=== PATIENT | male | born 1980 | race Caucasian/White ===

== ENCOUNTER 2021-03-14 17:12 | Emergency (ER) | payer MEDICARE, MEDICAID, SELFPAY ==
[2021-03-14 17:29] VITALS: BP 148/102; PULSE 96; RESP 14; TEMP 37.1; O2SAT 98
[2021-03-14 17:45] LABS: Basophils Absolute Auto 0.1 K/mm3 (0.0-0.1); Basophils Percent Auto 0.8 % (0.2-1.2); Eosinophils Absolute Auto 0.1 K/mm3 (0-0.3); Eosinophils Percent Auto 0.5 % (0-4.4); Hematocrit 46.1 % (42.0-52.0); Hemoglobin 16.3 g/dL (14.0-18.0); Immature Granulocyte Absolute 0.05 K/mm3 (0.00-0.031); Immature Granulocyte Percent A 0.4 % (0-0.5); Lymphocytes Absolute Auto 2.64 K/mm3 (0.9-3.2); Lymphocytes Percent Auto 21.9 % (18.3-44.2); Mean Corpuscular HGB Conc 35.4 g/dl (32-36); Mean Corpuscular Hemoglobin 30.6 pg (26-34); Mean Corpuscular Volume 86.7 fl (80-100); Mean Platelet Volume 11.1 fl (7.4-10.4); Monocytes Absolute Auto 0.9 K/mm3 (0.1-0.6); Monocytes Percent Auto 7.7 % (2.6-8.5); Neutrophils Absolute Auto 8.3 K/mm3 (1.3-6.7); Neutrophils Percent Auto 68.7 % (45.5-73.1); Platelet Count Result 332 k/mm3 (150-375); Red Blood Count 5.32 M/mm3 (4.6-6.20); Red Cell Distribution Width 12.7 % (11.5-14.5); White Blood Count 12.1 K/mm3 (4.5-10.0)
[2021-03-14 17:51] LABS: Add Urine Microscopic? YES; Appearance Urine Cloudy (Clear); Bacteria Urine Trace /hpf; Bilirubin Urine Negative (Negative); Blood Urine 3+ (Negative); Color Urine Amber (Yellow); Glucose Urine UA Negative (Negative); Hyaline Casts Urine 30-49 /lpf; Ketones Urine Trace mg/dL (Negative); Leukocyte Esterase Ur Negative LEU/UL (Negative); Mucus Urine Moderate /lpf; Nitrate Urine Negative (Negative); Protein Urine 2+ mg/dL (Negative); RBC Urine >75 /hpf (0-2); Specific Grav Ur 1.019 (1.001-1.035); Squamous Epithelial Cell Urine Many /hpf (Few)
[2021-03-14 17:58] LABS: Alanine Aminotransferase 17 U/L (4-50); Albumin Level 5.4 g/dL (3.5-5.1); Alkaline Phosphatase 93 U/L (38-126); Anion Gap 20 mmol/L (8-16); Aspartate Amino Transferase 46 U/L (17-59); Bilirubin,Total 0.5 mg/dL (0.2-1.3); Blood Urea Nitrogen 14 mg/dL (9-20); Calcium 9.8 mg/dL (8.4-10.2); Carbon Dioxide 17 mmol/L (22-30); Chloride 101 mmol/L (98-107); Estimated CRCL calculation 67 ml/min; Estimated Glomerular Filt Rate > 60; Ethanol 142 mg/dL (<10); Glucose 97 mg/dL (75-110); Potassium 3.7 mmol/L (3.4-5.0); Sodium 138 mmol/L (137-145)
[2021-03-14 18:03] LABS: Amphetamine Screen Urine Negative (Negative); Barbiturate Screen Urine Negative (Negative); Benzodiazepines Screen Urine Negative (Negative); Cannabinoid Screen Urine Positive (Negative); Cocaine Screen Urine Negative (Negative); Methadone Screen Urine Negative (Negative); Opiate Screen Urine Negative (Negative); Phencyclidine Screen Urine Negative (Negative)
--- NOTE | 2021-03-14 19:19 | PC.NURSE ---
Chem, MENDOZA Nicole, added on
--- NOTE | 2021-03-14 19:21 | PC.NURSE ---
Report received from TIMI Tierney. Assumed care of patient at this time.
[2021-03-14 19:27] LABS: Creatine Kinase 381 U/L (55-170)
[2021-03-14] MEDS: LACTATED RINGERS 1,000 ML 999 ML IV CONT (19:33)
[2021-03-14 19:35] VITALS: BP 164/93; PULSE 86; RESP 16; TEMP 36.9; O2SAT 98
--- NOTE | 2021-03-14 19:59 | PC.NURSE ---
Per ERP , patient is medically cleared at this time. Contact Crisis for evaluation.
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
[2021-03-14 21:07] LABS: EDCOVIDSCREEN Negative (Negative)
[2021-03-14 22:02] LABS: Valproic Acid < 10.0 ug/mL (50-120)
--- NOTE | 2021-03-14 22:24 | PC.NURSE ---
2223 Yuni from [facility] in [place] calls to inform this nurse that there are no beds available at this time, but they do have discharges scheduled for the morning to can check back.
[2021-03-14 22:39] LABS: Ethanol 40 mg/dL (<10)
[2021-03-14] MEDS: DIVALPROEX SODIUM ER 500 MG TAB.24H 1000 MG PO (23:13)
[2021-03-15 05:21] VITALS: BP 119/70; PULSE 81; RESP 18; TEMP 36.6; O2SAT 97
--- NOTE | 2021-03-15 10:38 | PC.NURSE ---
faxxed pt ed summary to [facility] at this time.
--- NOTE | 2021-03-15 10:47 | PC.NURSE ---
original fax to [facility] did not go through, called [facility] and received a different fax number. pt info faxed again at this time.
[2021-03-15 11:02] VITALS: BP 138/90; PULSE 64; RESP 16; O2SAT 99
--- NOTE | 2021-03-15 11:06 | PC.NURSE ---
per [facility] reassessment no risk indicated, sitter removed at this time.
--- NOTE | 2021-03-15 13:52 | PC.NURSE ---
spoke with Hank from [facility] at this time regarding placement
--- NOTE | 2021-03-15 14:30 | PC.NURSE ---
was notified at this time that [facility] rejected pt. pt summary faxed to [facility] at this time.
[2021-03-15 17:43] LABS: Creatine Kinase 136 U/L (55-170)
--- NOTE | 2021-03-15 17:54 | PC.NURSE ---
pt asked per [facility] request if pt has UTI like symptoms. pt denies burning, frequency, or any other UTI symptoms.
[2021-03-15 19:32] VITALS: BP 146/80; PULSE 59; RESP 16; TEMP 37; O2SAT 98
== END 2021-03-15 20:35 ==
PROVIDERS: Emergency Medicine; Emergency Provider Emergency Medicine
DX: R45.851 Suicidal ideations (principal); E86.0 Dehydration; Z87.820 Personal history of traumatic brain injury; F17.210 Nicotine dependence, cigarettes, uncomplicated; Z79.899 Other long term (current) drug therapy; Z20.822 Contact with and (suspected) exposure to COVID-19
CPT/HCPCS: 36415; 80053; 80164; 80307; 81001; 82550; 84443; 85025; 87426; 96360; 99285; A9270; C9803; J7120

== ENCOUNTER 2021-11-20 22:03 | Emergency (ER) | payer MEDICARE, MEDICAID, SELFPAY ==
--- NOTE | 2021-11-20 22:14 | PC.NURSE ---
40yr, M presents to the ED with c/o mental health issues, suicidal thoughts, denies homicidal thoughts.
[2021-11-20 22:15] VITALS: BP 143/101; PULSE 82; RESP 14; O2SAT 99
[2021-11-20 22:31] LABS: Basophils Absolute Auto 0.1 K/mm3 (0.0-0.1); Basophils Percent Auto 1.3 % (0.2-1.2); Eosinophils Absolute Auto 0.2 K/mm3 (0-0.3); Eosinophils Percent Auto 1.7 % (0-4.4); Hematocrit 46.5 % (42.0-52.0); Hemoglobin 16.3 g/dL (14.0-18.0); Immature Granulocyte Absolute 0.03 K/mm3 (0.00-0.031); Immature Granulocyte Percent A 0.3 % (0-0.5); Lymphocytes Absolute Auto 3.05 K/mm3 (0.9-3.2); Lymphocytes Percent Auto 28.3 % (18.3-44.2); Mean Corpuscular HGB Conc 35.1 g/dl (32-36); Mean Corpuscular Hemoglobin 30.6 pg (26-34); Mean Corpuscular Volume 87.2 fl (80-100); Mean Platelet Volume 11.3 fl (7.4-10.4); Monocytes Absolute Auto 0.7 K/mm3 (0.1-0.6); Neutrophils Absolute Auto 6.7 K/mm3 (1.3-6.7); Neutrophils Percent Auto 62.4 % (45.5-73.1); Platelet Count Result 282 k/mm3 (150-375); Red Blood Count 5.33 M/mm3 (4.6-6.20); Red Cell Distribution Width 13.1 % (11.5-14.5); White Blood Count 10.8 K/mm3 (4.5-10.0)
--- NOTE | 2021-11-20 22:46 | PC.NURSE ---
Pt is legally blind, states he can only see shapes and colors.
--- NOTE | 2021-11-20 22:55 | PC.NURSE ---
Pt reports he has a hx of psychiatric treatment. States a couple months ago he took all prescribed medication in an attempt to harm himself, but did not seek treatment. Pt states nothing came of it . Pt also reports hx self mutilation. When asked if he had a plan to harm himself [place], pt states you cant live that ling without water, I was going to dehydrate myself. I was going to start there . Repots after talking on phone with ex-, he decided to come in for evaluation. Denies HI or auditory or visual hallucinations. Pt calm and cooperative with treatment plan at this time. Sitter at bedside.
[2021-11-20 22:59] LABS: Ethanol < 10 mg/dL (<10)
[2021-11-20 23:01] LABS: Alanine Aminotransferase 12 U/L (4-50); Albumin Level 4.7 g/dL (3.5-5.1); Alkaline Phosphatase 76 U/L (38-126); Anion Gap 10 mmol/L (8-16); Aspartate Amino Transferase 21 U/L (17-59); Bilirubin,Total 0.6 mg/dL (0.2-1.3); Blood Urea Nitrogen 17 mg/dL (9-20); Calcium 9.2 mg/dL (8.4-10.2); Carbon Dioxide 21 mmol/L (22-30); Chloride 108 mmol/L (98-107); Estimated CRCL calculation 108 ml/min; Estimated Glomerular Filt Rate > 60; Glucose 98 mg/dL (65-110); Potassium 4.3 mmol/L (3.4-5.0); Sodium 139 mmol/L (137-145)
[2021-11-20 23:08] LABS: Amphetamine Screen Urine Negative (Negative); Barbiturate Screen Urine Negative (Negative); Benzodiazepines Screen Urine Negative (Negative); Cannabinoid Screen Urine Positive (Negative); Cocaine Screen Urine Negative (Negative); Methadone Screen Urine Negative (Negative); Opiate Screen Urine Negative (Negative); Phencyclidine Screen Urine Negative (Negative)
[2021-11-20 23:11] LABS: Add Urine Microscopic? YES; Appearance Urine Clear (Clear); Bacteria Urine Trace /hpf; Bilirubin Urine Negative (Negative); Blood Urine 2+ (Negative); Color Urine Yellow (Yellow); Glucose Urine UA Negative (Negative); Ketones Urine 1+ mg/dL (Negative); Leukocyte Esterase Ur Negative LEU/UL (Negative); Mucus Urine Heavy /lpf; Nitrate Urine Negative (Negative); Protein Urine 1+ mg/dL (Negative); RBC Urine 51-75 /hpf (0-2); Specific Grav Ur 1.026 (1.001-1.035)
[2021-11-20 23:25] LABS: SARS-CoV-2 RNA PCR Negative
--- NOTE | 2021-11-21 00:35 | ED.PSYCH ---
HPI - Psych General Chief Complaint: Psychiatric Symptoms <Chelsi Mena APRN - Last Filed: 11/21/21 03:56> Stated Complaint: suicidal thoughts <Chelsi Mena APRN - Last Filed: 11/21/21 03:56> Time Seen by Provider: 11/20/21 22:07 <Chelsi Mena APRN - Last Filed: 11/21/21 03:56> Source: patient <Chelsi Mena APRN - Last Filed: 11/21/21 03:56> Mode of arrival: ambulatory <Chelsi Mena APRN - Last Filed: 11/21/21 03:56> Limitations: no limitations <Chelsi Mena APRN - Last Filed: 11/21/21 03:56> History of Present Illness HPI Narrative: 40-year-old male with history of brain injury presents today with complaints of suicidal ideation. Patient states his plan was to dehydrate himself. Patient states he has a history of depression and has had suicidal thoughts in the past they are just worse now. Patient denies homicidal ideation. Patient denies hearing voices. Patient is calm and cooperative on exam. <Chelsi Mena APRN - Last Filed: 11/21/21 03:56> Related Data Home Medications: Home Medications Medication Instructions Recorded Confirmed buspirone mg 03/14/21 divalproex PO 03/14/21 tamsulosin mg PO 03/14/21 <Chelsi Mena TEXTILE MACHINERY SALES REPRESENTATIVE - Last Filed: 11/21/21 03:56> Allergies/Adverse Reactions: Allergies Allergy/AdvReac Type Severity Reaction Status Date / Time bee venom protein (honey bee) Allergy Unknown Unknown Verified 03/14/21 18:44 diphenhydramine Allergy Unknown Unresponsiv Verified 03/14/21 18:44 e tramadol Allergy Unknown nauseated Verified 01/16/17 17:34 <Chelsi Mena APRN - Last Filed: 11/21/21 03:56> Review of Systems Review of Systems: CONSTITUTIONAL: Denies fever, chills, or sweats. EYES: Denies visual changes, redness, or discharge. ENT: Denies rhinorrhea, congestion, sore throat, or otalgia. CARDIOVASCULAR: Denies chest pain, palpitations, or edema. RESPIRATORY: Denies cough or dyspnea. GASTROINTESTINAL: Denies abdominal pain, nausea, vomiting, or diarrhea. GENITOURINARY: Denies dysuria or hematuria. SKIN: Denies rash or itching. MUSCULOSKELETAL: Denies back pain, joint pain, or myalgia. NEUROLOGIC: Denies headache, numbness, dizziness, or weakness. PSYCHIATRIC: Anxiety, depression, and suicidal ideation. <Chelsi Mena APRN - Last Filed: 11/21/21 03:56> PMFSH Social History Social History: Social History Substance use type: does not use <Chelsi Mena APRN - Last Filed: 11/21/21 03:56> Exam Narrative: GENERAL: Well-appearing, well-nourished, and in no acute distress. HEAD: Normocephalic, atraumatic. EYES: PERRLA and EOMI. ENT: Nares clear, no rhinorrhea or epistaxis. Mucous membranes moist. Oropharynx without tonsillar hypertrophy exudate or other lesions. Bilateral TMs pearly cooney nonbulging NECK: Supple. No adenopathy or masses. No carotid bruits or JVD CHEST: Clear to auscultation. No respiratory distress. No wheezes rales or rhonchi HEART: Regular rate and rhythm. No murmur heard. Normal peripheral pulses. ABDOMEN: Soft, nontender, nondistended, normal active bowel sounds. EXTREMITIES: Normal range of motion. No edema. SKIN: Warm, dry, no rash. NEURO: No focal deficits. Alert and oriented x3. PSYCH: Depressed. Flat affect. <Chelsi Mena APRN - Last Filed: 11/21/21 03:56> Course Course Emergency Course: Crises evaluated patient. Patient to be discharged home with safety plan and follow up with psychiatry. <Chelsi Mena APRN - Last Filed: 11/21/21 03:56> Reevaluation(s) Reevaluation #1: Medically cleared for psych/crisis evaluation <Chelsi Mena APRN - Last Filed: 11/21/21 03:56> Date: 11/21/21 <Chelsi Mena APRN - Last Filed: 11/21/21 03:56> Time: 00:35 <Chelsi Mena, TEXTILE MACHINERY SALES REPRESENTATIVE - Last Filed: 11/21/21 03:56> Vital Signs Vital signs: Vital Signs Pulse Rate 82 11/20/21 22:15 Respirato
--- NOTE | 2021-11-21 00:35 | PC.NURSE ---
Pt medically cleared at this time
--- NOTE | 2021-11-21 01:37 | PC.NURSE ---
[place] arrived to evaluate pt
[2021-11-21 03:02] VITALS: BP 114/67; PULSE 90; RESP 16; TEMP 36.2; O2SAT 99
== END 2021-11-21 03:01 | disposition home or self-care (01) ==
PROVIDERS: General Practice; Emergency Provider Nurse Practitioner Family
DX: F32.A Depression, unspecified (principal); Z87.820 Personal history of traumatic brain injury; Z20.822 Contact with and (suspected) exposure to COVID-19; Z79.899 Other long term (current) drug therapy
CPT/HCPCS: 36415; 80053; 80307; 81001; 84443; 85025; 99284; C9803; U0003; U0005

== ENCOUNTER 2022-10-11 22:28 | Emergency (ER) | payer MEDICARE, MEDICAID, SELFPAY ==
--- NOTE | 2022-10-11 22:33 | ECG_ITS ---
Measurements Intervals [place] Rate: 85 P: 57 SD: 118 QRS: 82 QRSD: 105 T: 71 QT: 376 QTc: 449 Interpretive Statements SINUS RHYTHM WITH SHORT [place] INTERVAL MINIMAL Q WAVES- INFERIOR LEADS BASELINE ARTIFACT- I, V3-V4 BORDERLINE ECG NO PREVIOUS ECG AVAILABLE FOR COMPARISON Electronically Signed On 10-12-2022 7:55:31 CONFIGURATION ENGINEER by Vinod Patel D.O.
[2022-10-11 22:34] VITALS: BP 129/93; PULSE 85; RESP 20; TEMP 37.1; O2SAT 100
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
[2022-10-11 23:05] LABS: Basophils Absolute Auto 0.2 K/mm3 (0.0-0.1); Basophils Percent Auto 0.9 % (0.2-1.2); Eosinophils Absolute Auto 0.2 K/mm3 (0-0.3); Eosinophils Percent Auto 0.7 % (0-4.4); Hematocrit 52.5 % (42.0-52.0); Hemoglobin 17.9 g/dL (14.0-18.0); Immature Granulocyte Absolute 0.15 K/mm3 (0.00-0.031); Immature Granulocyte Percent A 0.7 % (0-0.5); Lymphocytes Absolute Auto 3.05 K/mm3 (0.9-3.2); Lymphocytes Percent Auto 15.1 % (18.3-44.2); Mean Corpuscular HGB Conc 34.1 g/dl (32-36); Mean Corpuscular Hemoglobin 30.1 pg (26-34); Mean Corpuscular Volume 88.4 fl (80-100); Mean Platelet Volume 10.1 fl (7.4-10.4); Monocytes Absolute Auto 0.8 K/mm3 (0.1-0.6); Monocytes Percent Auto 3.9 % (2.6-8.5); Neutrophils Absolute Auto 15.9 K/mm3 (1.3-6.7); Neutrophils Percent Auto 78.7 % (45.5-73.1); Platelet Count Result 353 k/mm3 (150-375); Red Blood Count 5.94 M/mm3 (4.6-6.20); Red Cell Distribution Width 13.2 % (11.5-14.5); White Blood Count 20.2 K/mm3 (4.5-10.0)
[2022-10-11] MEDS: SODIUM CHLORIDE 0.9% IV 1,000 ML 999 ML IV CONT (23:11)
[2022-10-11] MEDS: THIAMINE HCL 200 MG/2 ML VIAL 100 MG IV PUSH (23:11)
[2022-10-11 23:27] LABS: Alanine Aminotransferase 20 U/L (6-50); Albumin Level 5.2 g/dL (3.5-5.1); Alkaline Phosphatase 114 U/L (38-126); Anion Gap 17 mmol/L (8-16); Aspartate Amino Transferase 29 U/L (17-59); Bilirubin,Total 0.4 mg/dL (0.2-1.3); Blood Urea Nitrogen 14 mg/dL (9-20); Calcium 8.7 mg/dL (8.4-10.2); Carbon Dioxide 18 mmol/L (22-30); Chloride 106 mmol/L (98-107); Estimated Glomerular Filt Rate > 60; Glucose 77 mg/dL (65-110); Potassium 4.1 mmol/L (3.4-5.0); Sodium 141 mmol/L (137-145)
[2022-10-11 23:35] LABS: Acetaminophen < 10 ug/mL (10-30); Ethanol 202 mg/dL (<10); Salicylate < 1.0 mg/dL (2-20)
[2022-10-11 23:52] LABS: SARS-CoV-2 RNA PCR Negative
[2022-10-12 00:04] LABS: Mucus Urine Rare /lpf; WBC Urine 0-3 /hpf
[2022-10-12 00:07] LABS: Amphetamine Screen Urine Negative (Negative); Barbiturate Screen Urine Negative (Negative); Benzodiazepines Screen Urine Negative (Negative); Cannabinoid Screen Urine Positive (Negative); Cocaine Screen Urine Negative (Negative); Methadone Screen Urine Negative (Negative); Opiate Screen Urine Negative (Negative); Phencyclidine Screen Urine Negative (Negative)
[2022-10-12 00:22] LABS: Add Urine Microscopic? YES; Appearance Urine Clear (Clear); Bilirubin Urine Negative (Negative); Blood Urine 1+ (Negative); Color Urine Yellow (Yellow); Glucose Urine UA Negative (Negative); Ketones Urine Negative (Negative); Leukocyte Esterase Ur Negative LEU/UL (Negative); Nitrate Urine Negative (Negative); Protein Urine 1+ mg/dL (Negative); Specific Grav Ur 1.015 (1.001-1.035); Urobilinogen Urine 0.2 mg/dL (<2.0); pH Urine 5.5 (5.0-9.0)
[2022-10-12 02:50] VITALS: BP 118/81; PULSE 71; RESP 18; O2SAT 97
[2022-10-12 03:37] LABS: Ethanol 119 mg/dL (<10)
[2022-10-12 06:22] LABS: Ethanol 61 mg/dL (<10)
[2022-10-12 06:35] VITALS: BP 141/79; PULSE 85; RESP 16; O2SAT 97
--- NOTE | 2022-10-12 07:24 | PC.NURSE ---
Patient report received from TIMI Castellano. All questions answered and care of patient assumed. Patient resting quietly in room 15. Awaiting breakfast tray and ultimate discharge to home.
--- NOTE | 2022-10-12 08:15 | PC.NURSE ---
Patient alert and oriented at this time. Denies SI/HI. Patient unsure how is going to get home. This RN asked patient if his mom could be called for transport and he agreed though he stated she won't come - she's the reason I'm here . The patient's mother was called and she informed this RN that the patient was no longer welcomed at her home where he lives. Mother reports that the patient has been aggressive and threatening and that there was evidence on the [place] that he was researching if bleach could kill someone . Mother informed this RN that she was going to be going to the court house for assistance in getting the patient placed in a mental health facility due to his paranoia and aggressive behavior. This was communicate to the email marketing intern, the EDP, and Case Management. Instructed to contact Crisis for evaluation.
--- NOTE | 2022-10-12 08:26 | PC.NURSE ---
Patient's mother Matidla - [phone]
--- NOTE | 2022-10-12 08:38 | PC.NURSE ---
Crisis contacted - spoke with Jennifer who will come to evaluate patient.
--- NOTE | 2022-10-12 09:59 | PCCCNOTE ---
Jennifer from Crisis is here for an evaluation, Called patient's mom Matilda at [phone]. She states that she does not have guardianship over him, she did at one point but then he went to the courthouse and to get and she had the guardianship dropped before marrying him. She thinks maybe there is POA paperwork somewhere but not sure where. At this point, he makes all of him own personal, and medical decisions. Mother Matilda reports grandiose behaviors with manipulation, does not think it is part of TBI but mental health. He was seeing a psychiatrist virtually but when she would not give him a specific diagnosis she fired her that was several months ago and Matilda reports that he probably stopped taking his medications before them. Mother Matilda is planning to file for an order of protection against him. Advised that Jennifer will be going to do a crisis eval, and we can update her. Per Mother Matilda, states that she is in her 60s and is 70s and not able to handle with ongoing behaviors and if he is cleared by crisis, will not be able to come to stay at her home. She is packing his belongings.
--- NOTE | 2022-10-12 10:20 | PC.NURSE ---
Jennifer with Crisis at bedside along with Case Management.
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
[2022-10-12 11:50] VITALS: BP 189/81; PULSE 91; RESP 20; O2SAT 100
== END 2022-10-12 11:51 | disposition home or self-care (01) ==
PROVIDERS: Emergency Medicine; Emergency Provider Nurse Practitioner Family
DX: F10.129 Alcohol abuse with intoxication, unspecified (principal); I10 Essential (primary) hypertension; F43.10 Post-traumatic stress disorder, unspecified; F32.9 Major depressive disorder, single episode, unspecified; Y90.0 Blood alcohol level of less than 20 mg/100 ml; Z20.822 Contact with and (suspected) exposure to COVID-19; Z79.899 Other long term (current) drug therapy
CPT/HCPCS: 36415; 80053; 80307; 81001; 84443; 85025; 93005; 96374; 99284; J3411; J7030; U0003; U0005

== ENCOUNTER 2023-02-06 10:53 | Emergency (ER) | payer MEDICARE, MEDICAID, SELFPAY ==
--- NOTE | ~2023-02-06 | XR_ITS ---
XR foot RT min 3V 02/06/2023 11:23 Indication: Right foot pain Procedure: 4 views right foot Comparison: No prior studies Findings: There is a small ossific density adjacent to the third proximal phalanx medially, suspiciou s for avulsion fracture. The Lisfranc joint intact. There is a degenerative calcaneal enthesophyte. Impression: 1: Small ossific density adjacent to the right third proximal phalanx, suspicious for avulsion fractu re. Reviewed, dictated and finalized at location B. Impression: 1: Small ossific density adjacent to the right third proximal phalanx, suspicio us for avulsion fracture.
[2023-02-06 11:11] VITALS: BP 126/86; PULSE 85; RESP 18; TEMP 36.6; O2SAT 100
--- NOTE | 2023-02-08 12:28 | ED.LOWEXIN ---
HPI - Extremity Injury (Lower) General Chief Complaint: Extremity Injury, Lower Stated Complaint: rt ankle pain Time Seen by Provider: 02/06/23 11:30 Source: patient Mode of arrival: wheelchair Limitations: no limitations History of Present Illness HPI Narrative: 42 yo M presents with c/o pain to R ankle and R foot for several weeks. denies injury. pt reports that he is legally blind and is either walking or riding his bike. Pain worse with walking. States that he always wears a comfortable tennis shoe. has not seen his PCP for this problem. ROM intact, distal NV intact. All systems reviewed and negative except as noted above. Related Data Home Medications Medication Instructions Recorded Confirmed No Home Medications 02/06/23 02/06/23 Allergies Allergy/AdvReac Type Severity Reaction Status Date / Time bee venom protein (honey bee) AdvReac Severe Unresponsiv Verified 02/06/23 11:16 e diphenhydramine AdvReac Severe Unresponsiv Verified 02/06/23 11:03 e tramadol AdvReac Intermediate nauseated Verified 02/06/23 11:03 Review of Systems Review of Systems: CONSTITUTIONAL: Denies fever, chills, or sweats. EYES: Denies visual changes, redness, or discharge. ENT: Denies rhinorrhea, congestion, sore throat, or otalgia. CARDIOVASCULAR: Denies chest pain, palpitations, or edema. RESPIRATORY: Denies cough or dyspnea. GASTROINTESTINAL: Denies abdominal pain, nausea, vomiting, or diarrhea. GENITOURINARY: Denies dysuria or hematuria. SKIN: Denies rash or itching. MUSCULOSKELETAL: Denies back pain or myalgia. Reports right ankle foot pain. NEUROLOGIC: Denies headache, numbness, or weakness. PSYCHIATRIC: Denies anxiety or depression. All other systems reviewed are negative, except as documented in HPI. PMFSH Social History Social History Substance use type: does not use Comments At time of signature, agree with nursing past medical, surgical, social and family history. There is no relevant family history pertinent to the presenting complaint. Exam Narrative: GENERAL: This is a well-nourished, well-developed patient, in no apparent distress. HEAD: normocephalic, atraumatic. EYES: PERRL. Sclera clear/white. Vision is grossly intact. EARS: External ears normal NOSE: External nose normal NECK: Neck supple, non-tender without lymphadenopathy, masses or thyromegaly. CARDIOVASCULAR: Regular rate and rhythm without murmurs, gallops, or rubs. RESPIRATORY: Clear to auscultation. Breath sounds equal bilaterally. No wheezes, rales, or rhonchi. SKIN: warm, Dry, intact with no suspicious lesions or rash, good texture and turgor. NEURO: awake, alert, and oriented to person, place and time. There were no obvious focal neurologic abnormalities. EXTREMITIES: No joint tenderness, effusion, or edema noted. No swelling noted to R ankle or R foot. generalized tenderness. Full ROM. no erythema or warmth concerning for infection. Course Course Level of Care: Express Care Visit Vital Signs Vital signs: Vital Signs Temperature 36.6 C 02/06/23 11:11 Pulse Rate 85 02/06/23 11:11 Respiratory Rate 18 02/06/23 11:11 Blood Pressure 126/86 02/06/23 11:11 Pulse Oximetry 100 02/06/23 11:11 Oxygen Delivery Room Air 02/06/23 11:11 Temperature 36.6 C 02/06/23 11:11 Pulse Rate 85 02/06/23 11:11 Respiratory Rate 18 02/06/23 11:11 Blood Pressure 126/86 02/06/23 11:11 Pulse Oximetry 100 02/06/23 11:11 Oxygen Delivery Room Air 02/06/23 11:11 reviewed MDM - Extremity Injury (Lower) MDM Narrative Medical decision making narrative: discussed xray results with pt. there is no tenderness to the R third phalanx. referred to podiatry for further evaluation of foot and ankle pain. Patient is aware of diagnosis, understands and agrees to treatment plan. Anticipatory guidance given. Patient agrees to follow-up as directed and is lina
== END 2023-02-06 11:45 | disposition home or self-care (01) ==
PROVIDERS: Emergency Provider Nurse Practitioner Family; PCP Nurse Practitioner Family
DX: M79.671 Pain in right foot (principal); I10 Essential (primary) hypertension
CPT/HCPCS: 73630; 99213; G0463

== ENCOUNTER 2023-02-13 17:55 | Emergency (ER) | payer MEDICARE, MEDICAID, SELFPAY ==
--- NOTE | 2023-02-13 17:57 | ECG_ITS ---
Measurements Intervals [place] Rate: 64 P: 44 [place]: 108 QRS: 81 QRSD: 94 T: 69 QT: 397 QTc: 411 Interpretive Statements SINUS RHYTHM WITH SINUS ARRHYTHMIA WITH SHORT [place] INTERVAL BASELINE ARTIFACT- I, III, AVL BORDERLINE ECG COMPARED TO ECG 10/11/2022 22:52:12 SINUS ARRHYTHMIA NOW PRESENT Electronically Signed On 02-13-2023 21:35:13 CDT by Vinod Patel D.O.
[2023-02-13 18:04] VITALS: BP 149/90; PULSE 68; RESP 15; TEMP 36.6; O2SAT 99
[2023-02-13 18:17] LABS: Basophils Absolute Auto 0.1 K/mm3 (0.0-0.1); Basophils Percent Auto 1.1 % (0.2-1.2); Eosinophils Absolute Auto 0.2 K/mm3 (0-0.3); Eosinophils Percent Auto 1.9 % (0-4.4); Hematocrit 46.3 % (42.0-52.0); Immature Granulocyte Absolute 0.02 K/mm3 (0.00-0.031); Immature Granulocyte Percent A 0.2 % (0-0.5); Lymphocytes Absolute Auto 2.76 K/mm3 (0.9-3.2); Lymphocytes Percent Auto 29.5 % (18.3-44.2); Mean Corpuscular HGB Conc 34.6 g/dl (32-36); Mean Corpuscular Hemoglobin 30.5 pg (26-34); Mean Corpuscular Volume 88.2 fl (80-100); Mean Platelet Volume 10.5 fl (7.4-10.4); Monocytes Absolute Auto 0.7 K/mm3 (0.1-0.6); Monocytes Percent Auto 7.6 % (2.6-8.5); Neutrophils Absolute Auto 5.6 K/mm3 (1.3-6.7); Neutrophils Percent Auto 59.7 % (45.5-73.1); Platelet Count Result 301 k/mm3 (150-375); Red Blood Count 5.25 M/mm3 (4.6-6.20); Red Cell Distribution Width 13.1 % (11.5-14.5); White Blood Count 9.4 K/mm3 (4.5-10.0)
[2023-02-13 18:29] LABS: Alanine Aminotransferase 22 U/L (6-50); Albumin Level 4.7 g/dL (3.5-5.1); Alkaline Phosphatase 79 U/L (38-126); Anion Gap 6 mmol/L (8-16); Aspartate Amino Transferase 22 U/L (17-59); Bilirubin,Total 0.5 mg/dL (0.2-1.3); Blood Urea Nitrogen 16 mg/dL (9-20); Calcium 8.8 mg/dL (8.4-10.2); Carbon Dioxide 27 mmol/L (22-30); Chloride 103 mmol/L (98-107); Estimated CRCL calculation 104 ml/min; Estimated Glomerular Filt Rate > 60; Glucose 114 mg/dL (65-110); Lipase 38 U/L (23-300); Potassium 3.9 mmol/L (3.4-5.0); Sodium 136 mmol/L (137-145)
[2023-02-13 18:40] LABS: Troponin I < 0.012 ng/mL (0.000-0.034)
--- NOTE | 2023-02-13 19:43 | PC.NURSE ---
Pt states to this RN that he's leaving. Witnessed pt ambulated out of department with steady gait.
== END 2023-02-13 19:43 | disposition left against medical advice (07) ==
PROVIDERS: Emergency Provider Preventive Medicine Aerospace Medicine; PCP Nurse Practitioner Family
DX: R11.2 Nausea with vomiting, unspecified (principal)
CPT/HCPCS: 36415; 80053; 83690; 84484; 85025; 93005; 99199

== ENCOUNTER 2024-02-15 15:45 | Emergency (ER) | payer OTHER, SELFPAY ==
[2024-02-15 15:57] VITALS: BP 120/82; PULSE 78; RESP 18; TEMP 36.2; O2SAT 98
[2024-02-15 15:59] VITALS: BP 120/82; PULSE 78; RESP 18; TEMP 36.2; O2SAT 98
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
== END 2024-02-15 16:19 | disposition home or self-care (01) ==
PROVIDERS: Emergency Provider Nurse Practitioner Family
DX: G89.29 Other chronic pain (principal); R10.9 Unspecified abdominal pain; S16.1XXA Strain of muscle, fascia and tendon at neck level, initial encounter; X58.XXXA Exposure to other specified factors, initial encounter; I10 Essential (primary) hypertension
CPT/HCPCS: 99213; G0463

== ENCOUNTER 2024-02-19 14:17 | Emergency (ER) | payer OTHER, SELFPAY ==
--- NOTE | ~2024-02-19 | CT_ITS ---
EXAMINATION: CT abdomen pelvis w con DATE: 02/19/2024 15:26 INDICATION: Abdominal pain TECHNIQUE: Computed tomography (CT) of the abdomen and pelvis was performed with 100 cc Omnipaque 350 intravenous contrast. The dose-length product was 370.13 mGy-cm. Automated exposure control and iter ative reconstruction technique were employed. COMPARISON: 04/01/2016 FINDINGS: Lung bases unremarkable. Heart size normal. There are approximately 8 hypovascular lesions of the liver, largest of which measures 2.7 x 2 cm near the dome of the liver. There is suggestion of peripheral enhancement. The spleen, pancreas, adrenal glands and left kidney are unremarkable. There are nonobstructing right renal stones. No significant hydronephrosis. Nonobstructive bowel gas patte rn. Small fat-containing left inguinal hernia. No abnormal pelvic masses or fluid collections. Gallbl adder is present. No free air or free fluid. Mild lumbar spondylosis. IMPRESSION: 1. No acute abdominal abnormality. 2: Multiple hypovascular masses of the liver, largest of which appears to have peripheral enhancemen t, most likely benign, although further evaluation with MRI utilizing liver protocol without and with contrast recommended. 3: Nonobstructing right nephrolithiasis. Reviewed, dictated and finalized at location A. IMPRESSION: 1. No acute abdominal abnormality. 2: Multiple hypovascular masses of the liver, largest of which appears to have peripheral enhancement, most likely benign, although further evaluation with M RI utilizing liver protocol without and with contrast recommended. 3: Nonobstructing right nephrolithiasis.
[2024-02-19 14:19] VITALS: BP 127/92; PULSE 72; RESP 17; TEMP 36.6; O2SAT 98
[2024-02-19 14:52] LABS: Basophils Absolute Auto 0.1 K/mm3 (0.0-0.1); Basophils Percent Auto 1.2 % (0.2-1.2); Eosinophils Absolute Auto 0.2 K/mm3 (0-0.3); Eosinophils Percent Auto 1.3 % (0-4.4); Hematocrit 47.6 % (42.0-52.0); Hemoglobin 16.4 g/dL (14.0-18.0); Immature Granulocyte Absolute 0.08 K/mm3 (0.00-0.031); Immature Granulocyte Percent A 0.7 % (0-0.5); Lymphocytes Absolute Auto 2.96 K/mm3 (0.9-3.2); Lymphocytes Percent Auto 24.6 % (18.3-44.2); Mean Corpuscular HGB Conc 34.5 g/dl (32-36); Mean Corpuscular Hemoglobin 30.9 pg (26-34); Mean Corpuscular Volume 89.6 fl (80-100); Mean Platelet Volume 10.3 fl (7.4-10.4); Monocytes Absolute Auto 0.7 K/mm3 (0.1-0.6); Monocytes Percent Auto 5.6 % (2.6-8.5); Neutrophils Percent Auto 66.6 % (45.5-73.1); Platelet Count Result 344 k/mm3 (150-375); Red Blood Count 5.31 M/mm3 (4.6-6.20); Red Cell Distribution Width 13.3 % (11.5-14.5)
[2024-02-19 15:01] LABS: Lipase 36 U/L (23-300)
[2024-02-19 15:03] LABS: Alanine Aminotransferase 20 U/L (6-50); Albumin Level 4.4 g/dL (3.5-5.1); Alkaline Phosphatase 100 U/L (38-126); Anion Gap 7 mmol/L (4-12); Aspartate Amino Transferase 20 U/L (17-59); Bilirubin,Total 0.7 mg/dL (0.2-1.3); Blood Urea Nitrogen 12 mg/dL (9-20); Calcium 9.1 mg/dL (8.4-10.2); Carbon Dioxide 26 mmol/L (22-30); Chloride 106 mmol/L (98-107); Estimated CRCL calculation 95 ml/min; Estimated Glomerular Filt Rate > 60; Glucose 86 mg/dL (65-110); Lactic Acid Reflex 0.7 mmol/L (0.7-2.0); Sodium 139 mmol/L (137-145)
[2024-02-19 15:17] LABS: Appearance Urine Clear (Clear); Bacteria Urine None Seen /hpf; Bilirubin Urine Negative (Negative); Blood Urine 2+ (Negative); Color Urine Yellow (Yellow); Glucose Urine UA Negative (Negative); Ketones Urine 2+ mg/dL (Negative); Leukocyte Esterase Ur 1+ LEU/UL (Negative); Nitrate Urine Negative (Negative); Non Pathogenic Casts 0-2; Protein Urine 2+ mg/dL (Negative); RBC Urine 51-100 /hpf (0-2); Specific Grav Ur 1.022 (1.001-1.035); Squamous Epithelial Cell Urine None Seen /hpf (Few); pH Urine 5.5 (5.0-9.0)
[2024-02-19 15:19] LABS: Add Urine Microscopic? YES
[2024-02-19] MEDS: SODIUM CHLORIDE 0.9% IV 1,000 ML 999 ML IV CONT (15:34)
--- NOTE | 2024-02-19 15:53 | ED.ABDPAIN ---
HPI - Abdominal Pain General Chief Complaint: Abdominal Pain Stated Complaint: abd pain Time Seen by Provider: 02/19/24 14:31 History of Present Illness HPI narrative: Patient is a 43-year-old male who presents to the emergency department this evening complaining of abdominal pain for the past year. Patient states that the pain does come and go some days are worse than others and denies following up with a GI doctor. Patient admits to smoking marijuana daily and states that he has his medical marijuana card and that smoking marijuana has help getting him off of his seizure and high blood pressure medications. Patient denies any urinary symptoms including dysuria or hematuria, denies any constipation or diarrhea, any fevers or chills or any sick contacts at home. No chest pain or shortness of breath. No additional symptoms or concerns at this time. Related Data Allergies Allergy/AdvReac Type Severity Reaction Status Date / Time bee venom protein (honey bee) AdvReac Severe Unresponsiv Verified 02/19/24 14:30 e diphenhydramine AdvReac Severe Unresponsiv Verified 02/19/24 14:30 e tramadol AdvReac Intermediate nauseated Verified 02/19/24 14:30 Review of Systems Review of Systems: All systems are reviewed and are negative unless stated otherwise in the HPI. [facility], [facility] Social History Social History Substance use type: does not use Exam Narrative: General: Alert, awake, afebrile, in no acute distress. HEENT: PERRL, no rhinorrhea, no post nasal drip, oropharynx clear. Cardiovascular: Regular rate and rhythm, no murmurs, rubs or gallops, no peripheral edema. Respiratory: Clear to auscultation bilaterally, no tachypnea, no wheezing, no rhonchi, no rubs, no respiratory distress. Abdomen: Soft, nontender, nondistended, no rebound, no guarding, no peritoneal signs. Musculoskeletal: No joint swelling or deformity, normal muscle tone. Skin: No rashes or petechia, no signs of infection. Neurological: Alert and oriented to person, place, and time. Follows all commands. No focal deficits, speech is clear and fluent. Course Vital Signs Vital signs: Vital Signs Temperature 98 F 02/19/24 14:19 Pulse Rate 72 02/19/24 14:19 Respiratory Rate 17 02/19/24 14:19 Blood Pressure 127/92 H 02/19/24 14:19 Pulse Oximetry 98 02/19/24 14:19 Oxygen Delivery Room Air 02/19/24 14:19 Temperature 98 F 02/19/24 14:19 Pulse Rate 80 02/19/24 16:33 Respiratory Rate 17 02/19/24 16:33 Blood Pressure 129/89 02/19/24 16:33 Pulse Oximetry 100 02/19/24 16:33 Oxygen Delivery Room Air 02/19/24 14:19 MDM - Abdominal Pain MDM Narrative Medical decision making narrative: The patient was evaluated by myself in the emergency department. History is obtained from patient who is an independent historian and physical exam was performed. External medical records were reviewed at this time. IV was established and pertinent tests were ordered. Patient was administered a 1 L IV fluid bolus with normal saline and 4 mg of IV Zofran for nausea. Patient was also administered 40 mg of IV Protonix. Laboratory results obtained revealing no acute process. Imaging studies obtained included CT abdomen pelvis with IV contrast which was independently interpreted by me revealing incidental liver masses, likely benign otherwise no acute process, which is pending final radiology interpretation. Patient was informed of his liver masses and that he needs to follow up with GI for serial CT and patient is agreeable. Differential diagnosis considerations include cyclical vomiting syndrome, gastroenteritis, and pancreatitis. Comorbidities impacting this visit include history of daily marijuana use. I have evaluated and discussed social determinants of health with the patient that could potentially impact subsequent diagnosis and treatment plans. On repeat assessment of t
[2024-02-19] MEDS: ONDANSETRON INJ 4 MG/2 ML VIAL IV PUSH (16:19)
[2024-02-19] MEDS: PANTOPRAZOLE SODIUM IV 40 MG VIAL IV PUSH (16:19)
[2024-02-19 16:33] VITALS: BP 129/89; PULSE 80; RESP 17; O2SAT 100
== END 2024-02-19 16:36 | disposition home or self-care (01) ==
PROVIDERS: Emergency Provider Emergency Medicine
DX: R10.9 Unspecified abdominal pain (principal); F12.90 Cannabis use, unspecified, uncomplicated; N20.0 Calculus of kidney; R16.0 Hepatomegaly, not elsewhere classified
CPT/HCPCS: 36415; 74177; 80053; 81001; 82248; 83605; 83690; 85025; 87086; 96361; 96374; 96375; 99284; C9113; J2405; J7030; Q9967

== ENCOUNTER 2024-02-22 | Emergency (ER) | payer OTHER, SELFPAY ==
[2024-02-22 00:17] VITALS: BP 125/91; PULSE 97; RESP 20; O2SAT 98
[2024-02-22 00:45] LABS: Basophils Absolute Auto 0.2 K/mm3 (0.0-0.1); Basophils Percent Auto 1.8 % (0.2-1.2); Eosinophils Absolute Auto 0.2 K/mm3 (0-0.3); Eosinophils Percent Auto 2.5 % (0-4.4); Hematocrit 48.4 % (42.0-52.0); Hemoglobin 16.5 g/dL (14.0-18.0); Immature Granulocyte Absolute 0.06 K/mm3 (0.00-0.031); Immature Granulocyte Percent A 0.6 % (0-0.5); Lymphocytes Absolute Auto 3.65 K/mm3 (0.9-3.2); Lymphocytes Percent Auto 37.6 % (18.3-44.2); Mean Corpuscular HGB Conc 34.1 g/dl (32-36); Mean Corpuscular Hemoglobin 30.8 pg (26-34); Mean Corpuscular Volume 90.5 fl (80-100); Mean Platelet Volume 10.4 fl (7.4-10.4); Monocytes Absolute Auto 0.7 K/mm3 (0.1-0.6); Monocytes Percent Auto 6.9 % (2.6-8.5); Neutrophils Absolute Auto 4.9 K/mm3 (1.3-6.7); Neutrophils Percent Auto 50.6 % (45.5-73.1); Platelet Count Result 339 k/mm3 (150-375); Red Blood Count 5.35 M/mm3 (4.6-6.20); Red Cell Distribution Width 13.4 % (11.5-14.5); White Blood Count 9.7 K/mm3 (4.5-10.0)
[2024-02-22 00:55] LABS: Alanine Aminotransferase 15 U/L (6-50); Albumin Level 4.6 g/dL (3.5-5.1); Alkaline Phosphatase 85 U/L (38-126); Anion Gap 8 mmol/L (4-12); Aspartate Amino Transferase 18 U/L (17-59); Bilirubin,Total 0.4 mg/dL (0.2-1.3); Blood Urea Nitrogen 16 mg/dL (9-20); Calcium 8.8 mg/dL (8.4-10.2); Carbon Dioxide 29 mmol/L (22-30); Chloride 107 mmol/L (98-107); Estimated CRCL calculation 86 ml/min; Estimated Glomerular Filt Rate > 60; Glucose 99 mg/dL (65-110); Potassium 3.6 mmol/L (3.4-5.0); Sodium 144 mmol/L (137-145)
[2024-02-22 00:58] LABS: Acetaminophen < 10 ug/mL (10-30); Ethanol 254 mg/dL (<10); Salicylate < 1.0 mg/dL (2-20)
[2024-02-22 00:59] LABS: Appearance Urine Clear (Clear); Bacteria Urine None Seen /hpf; Bilirubin Urine Negative (Negative); Blood Urine 3+ (Negative); Color Urine Yellow (Yellow); Glucose Urine UA Negative (Negative); Ketones Urine Negative (Negative); Leukocyte Esterase Ur Trace LEU/UL (Negative); Need Manual Microscopic Reviewed; Nitrate Urine Negative (Negative); Non Pathogenic Casts 0-2; Protein Urine Negative (Negative); RBC Urine 0-2 /hpf (0-2); Specific Grav Ur 1.005 (1.001-1.035); Squamous Epithelial Cell Urine None Seen /hpf (Few); Urobilinogen Urine 0.2 mg/dL (<2.0); pH Urine 5.5 (5.0-9.0)
--- NOTE | 2024-02-22 00:59 | ED.GENADULT ---
HPI - General Adult General Chief complaint: Medical Clearance <Mitch Nettles MD - Last Filed: 02/22/24 05:26> Stated complaint: medical clearance <Mitch Nettles MD - Last Filed: 02/22/24 05:26> Time Seen by Provider: 02/22/24 00:18 <Mitch Nettles MD - Last Filed: 02/22/24 05:26> History of Present Illness HPI narrative: patient is a 43-year-old gentleman presents emergency department with chief complaint of suicidal ideation depression and anxiety patient reports he has history of hypertension PTSD traumatic brain injury and depression the patient reports that he has been having thoughts of wanting to harm herself does not have a specific plan patient does report drinking alcohol this evening <Mitch Nettles MD - Last Filed: 02/22/24 05:26> Related Data Allergies/adverse reactions: Allergies Allergy/AdvReac Type Severity Reaction Status Date / Time bee venom protein (honey bee) AdvReac Severe Unresponsiv Verified 02/19/24 14:30 e diphenhydramine AdvReac Severe Unresponsiv Verified 02/19/24 14:30 e tramadol AdvReac Intermediate nauseated Verified 02/19/24 14:30 <Mitch Nettles MD - Last Filed: 02/22/24 05:26> Review of Systems Review of Systems: A 10 system review of systems was completed on the patient and is negative except for what is stated in the HPI. Nursing and ancillary documentation was reviewed. <Mitch Nettles MD - Last Filed: 02/22/24 05:26> PMFSH Social History Social History: Social History Substance use type: marijuana <Mitch Nettles MD - Last Filed: 02/22/24 05:26> Exam Narrative: GENERAL: Well-appearing, well-nourished, and in no acute distress. HEAD: Normocephalic, atraumatic. EYES: PERRLA and EOMI. ENT: Nares clear, no rhinorrhea or epistaxis. Mucous membranes moist. NECK: Supple. CHEST: Clear to auscultation. No respiratory distress. HEART: Regular rate and rhythm. No murmur heard. Normal peripheral pulses. ABDOMEN: Soft, nontender, nondistended, normal active bowel sounds. EXTREMITIES: Normal range of motion. No edema. SKIN: Warm, dry, no rash. NEURO: No focal deficits. Alert and oriented x3. PSYCH: depressed mood and affect. <Mitch Nettles MD - Last Filed: 02/22/24 05:26> Course Course Emergency Course: (Jassi) Patient signed out to me with reported history of alcohol intoxication and suicidal ideation without a plan. Pending repeat alcohol. This does return as between 80 and 100. Patient reassessed at bedside. He is clinically sober but states he has been having a lot of issues/problems, with being turned away at a hotel or people not helping him use his debit/credit card. Patient tolerating his soda. No physical complaints. Medically cleared. Offered cranberry juice (his request) and crisis to evaluate. He is evaluated by crisis and is cleared. Provided resources and safety plan performed. Discharged in stable condition. <Italia Keene MD - Last Filed: 02/22/24 20:00> Vital Signs Vital signs: Vital Signs Pulse Rate 97 02/22/24 00:17 Respiratory Rate 20 02/22/24 00:17 Blood Pressure 125/91 H 02/22/24 00:17 Pulse Oximetry 98 02/22/24 00:17 Temperature 97.4 F L 02/22/24 07:36 Pulse Rate 65 02/22/24 07:36 Respiratory Rate 18 02/22/24 07:36 Blood Pressure 108/51 L 02/22/24 07:36 Pulse Oximetry 95 02/22/24 07:36 <Mitch Nettles MD - Last Filed: 02/22/24 05:26> Vital Signs Pulse Rate 97 02/22/24 00:17 Respiratory Rate 20 02/22/24 00:17 Blood Pressure 125/91 H 02/22/24 00:17 Pulse Oximetry 98 02/22/24 00:17 Temperature 97.4 F L 02/22/24 07:36 Pulse Rate 65 02/22/24 07:36 Respiratory Rate 18 02/22/24 07:36 Blood Pressure 108/51 L 02/22/24 07:36 Pulse Oximetry 95 02/22/24 07:36
[2024-02-22 01:11] LABS: Add Urine Microscopic? YES
[2024-02-22 01:20] LABS: Amphetamine Screen Urine Negative (Negative); Barbiturate Screen Urine Negative (Negative); Benzodiazepines Screen Urine Negative (Negative); Cannabinoid Screen Urine Positive (Negative); Cocaine Screen Urine Negative (Negative); Influenza A QL RT-PCR Negative (Negative); Influenza B QL RT-PCR Negative (Negative); Methadone Screen Urine Negative (Negative); Opiate Screen Urine Negative (Negative); Phencyclidine Screen Urine Negative (Negative); RSV RNA, RT-PCR Negative (Negative); SARS-CoV-2 RNA PCR Negative (Negative)
[2024-02-22 07:36] VITALS: BP 108/51; PULSE 65; RESP 18; TEMP 36.3; O2SAT 95
[2024-02-22 08:54] LABS: Ethanol 86 mg/dL (<10)
== END 2024-02-22 11:28 | disposition home or self-care (01) ==
PROVIDERS: Emergency Medicine; Emergency Provider Student in an Organized Health Care Education/Training Program
DX: F10.129 Alcohol abuse with intoxication, unspecified (principal); F12.90 Cannabis use, unspecified, uncomplicated; Y90.8 Blood alcohol level of 240 mg/100 ml or more; R45.851 Suicidal ideations; Z11.52 Encounter for screening for COVID-19; I10 Essential (primary) hypertension; Z87.828 Personal history of other (healed) physical injury and trauma; Z79.899 Other long term (current) drug therapy
CPT/HCPCS: 36415; 80053; 80307; 81001; 84443; 85025; 87040; 87086; 87637; 99284

== ENCOUNTER 2024-03-21 12:25 | Emergency (ER) | payer OTHER, SELFPAY ==
--- NOTE | ~2024-03-21 | XR_ITS ---
EXAMINATION: XR hand RT min 3V DATE: 03/21/2024 14:53 INDICATION: Right hand injury. TECHNIQUE: 4 views of right hand were obtained. COMPARISON: Right wrist radiographs 03/02/16 FINDINGS: Bone alignment is normal. No acute fracture. There is an old healed fracture of diaphysis o f fifth metacarpal. 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 IMPRESSION: 1. No acute fracture. Reviewed, dictated and finalized at location A. IMPRESSION: 1. No acute fracture.
[2024-03-21 12:47] VITALS: BP 135/75; PULSE 105; RESP 20; TEMP 36.7; O2SAT 99
--- NOTE | 2024-03-21 14:00 | PC.NURSE ---
Pt arrives with makeshift splint on his right hand and wrist with excessive amounts of tape and some sort of wrapping. Pt states his cast from [facility] just fell off so i needed something to keep my wrist from moving
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
--- NOTE | 2024-03-21 14:44 | PC.NURSE ---
home made splint taken off with Mitzi ZAPATA. Pt has wounds with sutures in on his thumb and base of hand.
[2024-03-21 16:12] LABS: Basophils Absolute Auto 0.1 K/mm3 (0.0-0.1); Basophils Percent Auto 0.9 % (0.2-1.2); Eosinophils Absolute Auto 0.3 K/mm3 (0-0.3); Eosinophils Percent Auto 2.4 % (0-4.4); Hematocrit 28.3 % (42.0-52.0); Hemoglobin 9.4 g/dL (14.0-18.0); Immature Granulocyte Absolute 0.11 K/mm3 (0.00-0.031); Immature Granulocyte Percent A 0.9 % (0-0.5); Lymphocytes Absolute Auto 2.34 K/mm3 (0.9-3.2); Lymphocytes Percent Auto 18.3 % (18.3-44.2); Mean Corpuscular HGB Conc 33.2 g/dl (32-36); Mean Corpuscular Hemoglobin 30.4 pg (26-34); Mean Corpuscular Volume 91.6 fl (80-100); Mean Platelet Volume 9.9 fl (7.4-10.4); Monocytes Absolute Auto 0.8 K/mm3 (0.1-0.6); Monocytes Percent Auto 6.3 % (2.6-8.5); Neutrophils Absolute Auto 9.1 K/mm3 (1.3-6.7); Neutrophils Percent Auto 71.2 % (45.5-73.1); Platelet Count Result 565 k/mm3 (150-375); Red Blood Count 3.09 M/mm3 (4.6-6.20); Red Cell Distribution Width 14.5 % (11.5-14.5); White Blood Count 12.8 K/mm3 (4.5-10.0)
[2024-03-21 16:22] LABS: Alanine Aminotransferase 69 U/L (6-50); Albumin Level 3.8 g/dL (3.5-5.1); Alkaline Phosphatase 111 U/L (38-126); Anion Gap 3 mmol/L (4-12); Aspartate Amino Transferase 35 U/L (17-59); Bilirubin,Total 0.4 mg/dL (0.2-1.3); Blood Urea Nitrogen 12 mg/dL (9-20); Calcium 8.5 mg/dL (8.4-10.2); Carbon Dioxide 27 mmol/L (22-30); Chloride 104 mmol/L (98-107); Estimated CRCL calculation 120 ml/min; Estimated Glomerular Filt Rate > 60; Glucose 87 mg/dL (65-110); Potassium 3.9 mmol/L (3.4-5.0); Sodium 134 mmol/L (137-145)
[2024-03-21 17:17] VITALS: BP 134/76; PULSE 64; RESP 16; O2SAT 97
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
== END 2024-03-21 18:44 | disposition home or self-care (01) ==
PROVIDERS: Emergency Provider Physician Assistant
DX: S61.411D Laceration without foreign body of right hand, subsequent encounter (principal); H54.7 Unspecified visual loss; Z59.01 Sheltered homelessness; W45.8XXD Other foreign body or object entering through skin, subsequent encounter
CPT/HCPCS: 36415; 73130; 80053; 85025; 99283

== ENCOUNTER 2024-04-18 08:00 | Outpatient (RCR) | payer OTHER, SELFPAY ==
--- NOTE | 2024-04-09 09:40 | OTOPEVAL1 ---
Assessment and note entered by Jayy Abernathy, KAZ/Marcello, CHT Evaluation Information Assessment Status Evaluation Diagnosis Injury of flexor tendon of right hand Subjective Information Patient unsure of date of surgery, reports a couple weeks ago . Sutures not present and healing looks good. Estimating about 2 weeks out. He presents today without dorsal blocking splint, reports he left it at home. He states, I've been trying to use my hand but it doesn't work. Discussed at length precautions following a tendon repair. Also able to speak with patient's mom, who he lives with, regarding the precautions and importance of wearing the splint. Pain Score 0: Self Report Assessment OT Clinical Summary Patient referred to OT following right index finger flexor tendon repair. He presents today without dorsal blocking splint and demonstrating very limited understanding of his precautions. Reviewed these at length. Proceeded with early passive motion protocol, having patient completing passive composite fist and passive hook fists. Reinforced importance of wearing the splint also. Continued follow up indicated to progress HEP, for scar management, use of modalities, and therapeutic exercise to facilitate optimal functional ROM, strength, and use of his right, dominant hand. Plan of Care Interventions Therapeutic Exercise,Manual Therapy,Therapeutic Activities,Hot Pack/Cold Pack,Ultrasound,Paraffin OT Services Indicated Yes Treatment Frequency and 1x/week for 6 visits Duration These treatments will address the objective and functional deficits as defined above. The patient will be advanced safely and appropriately in order for the patient to progress towards his/her prior level of function. Additional exercises will be introduced and as well as a comprehensive home exercise program upon discharge, if needed, ?to ensure carryover of functional gains achieved in the clinic. This treatment plan has been reviewed and agreement upon by the patient.
--- NOTE | 2024-04-09 09:40 | OPREHPOC ---
Outpatient Therapy Plan of Care This is a Multidisciplinary Plan of Care that may contain components documented by all disciplines (PT, OT, and ST.) OT Problem 1 OT Problem #1 Knowledge Deficit OT Goal 1 Goal 1. Patient to be independent with instructed materials. Target Visit 6 OT Problem 2 OT Problem #2 Impaired Flexibility OT Goal 1 Goal 1. Increase passive ROM of the (R) index finger as demonstrated by being able to make a passive hook fist with <1 cm gap between the finger tip and DPC. Target Visit 6 OT Goal 2 Goal Hold until 4 weeks post OP: 1. Patient to be able to complete active flexion of the index finger, isolating the FDS tendon, to make a flat fist through normal limits. 2. Patient to be able to complete active flexion of the index finger, isolating the FDP tendon, to make a hook fist through normal limits. Target Visit 6
--- NOTE | 2024-04-25 08:34 | PCOTNOTE ---
Patient did not show up for scheduled appointment this date. Called number in patient's file, his mom's, she reports she had an out of town family emergency. She states the patient probably was unable to get a ride set up. Reminded her of his next appointment.
--- NOTE | 2024-05-09 08:31 | OTOPDC ---
Assessment and note entered by Jayy Abernathy, OTLamar/L, CHT OT Discharge Notification 05/09/24 OT Clinical Summary Patient referred to OT s/p surgical repair of right index finger flexor tendon, zone II. He attended the initial evaluation and 1 follow up session. He has not shown for any follow up sessions since 04/18/24. He was performing passive ROM, tenodesis, and place and hold exercises. Questionable compliance with HEP and splinting. We are discharging OT due to poor attendance. Thank you for this referral.
== END 2024-05-10 08:46 | disposition home or self-care (01) ==
LOC: ANHOT 08:00
DX: S66.801D Unspecified injury of other specified muscles, fascia and tendons at wrist and hand level, right hand, subsequent encounter (principal)
CPT/HCPCS: 97110; 97166

== ENCOUNTER 2024-06-11 06:34 | Emergency (ER) | payer OTHER, SELFPAY ==
[2024-06-11 06:41] VITALS: BP 137/94; PULSE 93; RESP 18; TEMP 36.8; O2SAT 99
--- NOTE | 2024-06-11 08:52 | ED.GENADULT ---
HPI - General Adult General Chief complaint: Unspecified Stated complaint: cant sleep Time Seen by Provider: 06/11/24 08:39 History of Present Illness HPI narrative: 43 year old male present to the emergency department for evaluation for generalized body ache over the last few days. Patient reports having some new urinary symptoms. Patient states he is homeless and has been living outside. Patient states that he is having no urinary symptoms. Related Data Allergies Allergy/AdvReac Type Severity Reaction Status Date / Time bee venom protein (honey bee) AdvReac Severe Unresponsiv Verified 06/11/24 08:57 e diphenhydramine AdvReac Severe Unresponsiv Verified 06/11/24 08:57 e tramadol AdvReac Intermediate nauseated Verified 06/11/24 08:57 Review of Systems Review of Systems: All systems reviewed & are unremarkable except as noted in HPI and below PMFSH Past Medical History Medical History (Updated 06/11/24 @ 11:17 by Beto Abreu MD) History of anoxic brain injury History of blindness Social History Social History Substance use type: marijuana Exam Narrative: APPEARANCE: Well appearing, no pain, no distress, well-nourished. HEAD: normocephalic, atraumatic. EYES: PERRLA/EOMI, conjunctivae clear. NOSE: Normal no drainage EARS:TMS clear with good light reflex. THROAT: Pharynx clear, no exudate. NECK: Supple. No adenopathy, no masses. RESPIRATORY: Airway patent, respirations nonlabored. Clear to auscultation bilaterally, no rales, rhonchi, wheezing. CARDIOVASCULAR: Regular rate and rhythm without murmurs rubs or gallops. ABDOMINAL: Soft, nontender, nondistended, normal bowel sounds MUSCULOSKELETAL: Moves all extremities. Strength/ROM intact, No edema, No calf tenderness. NEURO: Alert. Cranial nerves II through XII intact. Grossly intact SKIN: Warm, dry. Normal Color Course Course Emergency Course: Patient was started on antibiotics for underlying urinary tract infect Vital Signs Vital signs: Vital Signs Temperature 98.2 F 06/11/24 06:41 Pulse Rate 93 06/11/24 06:41 Respiratory Rate 18 06/11/24 06:41 Blood Pressure 137/94 H 06/11/24 06:41 Pulse Oximetry 99 06/11/24 06:41 Oxygen Delivery Room Air 06/11/24 06:41 Temperature 98.5 F 06/11/24 08:58 Pulse Rate 74 06/11/24 11:23 Respiratory Rate 16 06/11/24 11:23 Blood Pressure 128/92 H 06/11/24 11:23 Pulse Oximetry 98 06/11/24 11:23 Oxygen Delivery Room Air 06/11/24 06:41 Medical Decision Making MDM Narrative Medical decision making narrative: [age] old male presenting ED for evaluation for body aches and fatigue. Patient was negative for influenza RSV and for COVID. Patient's urine was leukocyte esterase positive 51-100 white blood cells. Started on Keflex. Patient's post void residual bladder scan was negative. Patient was updated the results of the workup comfortable plan for discharge and close follow-up Differential Diagnosis Differential Diagnosis: UTI, influenza, RSV, COVID, pneumonia Vital Signs Vital Signs: Vital Signs Temperature 98.2 F 06/11/24 06:41 Pulse Rate 93 06/11/24 06:41 Respiratory Rate 18 06/11/24 06:41 Blood Pressure 137/94 H 06/11/24 06:41 Pulse Oximetry 99 06/11/24 06:41 Oxygen Delivery Room Air 06/11/24 06:41 Temperature 98.5 F 06/11/24 08:58 Pulse Rate 74 06/11/24 11:23 Respiratory Rate 16 06/11/24 11:23 Blood Pressure 128/92 H 06/11/24 11:23 Pulse Oximetry 98 06/11/24 11:23 Oxygen Delivery Room Air 06/11/24 06:41 Lab Data Labs: Lab Results 06/11/24 06/11/24 Range/Units 08:56 10:04 Urine Color Dark yellow (Yellow) Urine Appearance Cloudy H (Clear) Urine pH 5.5 (5.0-9.0) Ur Specific [place] 1.035 (1.001-1.035) Urine Protein 3+ H (Negative) mg/dL Urine Glucose (UA) Negative (Negative) mg/dL Urine Ketones
[2024-06-11 08:58] VITALS: BP 128/92; PULSE 81; RESP 15; TEMP 36.9; O2SAT 98
[2024-06-11 09:44] LABS: Influenza A QL RT-PCR Negative (Negative); Influenza B QL RT-PCR Negative (Negative); RSV RNA, RT-PCR Negative (Negative); SARS-CoV-2 RNA PCR Negative (Negative)
[2024-06-11 10:31] LABS: Appearance Urine Cloudy (Clear); Bilirubin Urine Negative (Negative); Blood Urine 3+ (Negative); Color Urine Dark Yellow (Yellow); Glucose Urine UA Negative (Negative); Ketones Urine 1+ mg/dL (Negative); Leukocyte Esterase Ur 1+ LEU/UL (Negative); Nitrate Urine Negative (Negative); Protein Urine 3+ mg/dL (Negative); Specific Grav Ur 1.035 (1.001-1.035); pH Urine 5.5 (5.0-9.0)
[2024-06-11 10:32] LABS: Add Urine Microscopic? YES; Bacteria Urine None Seen /hpf; Calcium Oxalate Crystals Urine Present /hpf; Need Manual Microscopic Reviewed; RBC Urine 21-50 /hpf (0-2); Squamous Epithelial Cell Urine None Seen /hpf (Few); WBC Urine 51-100 /hpf (0-3)
[2024-06-11 11:00] VITALS: BP 128/92; PULSE 87; RESP 14; O2SAT 98
[2024-06-11 11:23] VITALS: BP 128/92; PULSE 74; RESP 16; O2SAT 98
[2024-06-11] MEDS: CEPHALEXIN 500 MG CAPSULE PO (11:23)
== END 2024-06-11 11:24 | disposition home or self-care (01) ==
PROVIDERS: Emergency Provider Emergency Medicine
DX: N39.0 Urinary tract infection, site not specified (principal); Z20.822 Contact with and (suspected) exposure to COVID-19; H54.7 Unspecified visual loss; Z59.00 Homelessness unspecified; Z87.820 Personal history of traumatic brain injury
CPT/HCPCS: 81001; 87086; 87637; 99283; A9270